=== PATIENT | female | born 1980 | race Two or more races ===

== ENCOUNTER → 2017-05-29 | Emergency (ER) | payer OTHER ==
[~2017-05-29] VITALS: Ht 157.5 cm; Wt 81.6 kg
[~2017-05-29] MED LIST: ATENOLOL25 MG; CATAFLAM50 MG PO; CEFUROXIME500 MG PO; ENALAPRIL MALEA10 MG; ORPH100T PO; PEPCID40 MG PO; ZOFRAN4 MG PO
== END | disposition home or self-care (01) ==
LOC: ER 22:20
DX: N39.0 Urinary tract infection, site not specified (principal); R10.813 Right lower quadrant abdominal tenderness

== ENCOUNTER 2018-02-23 15:38 | Emergency (ER) | payer OTHER ==
[~2018-02-23] VITALS: Ht 152.4 cm; Wt 90.7 kg
[2018-02-23] MEDS ORDERED: ZOLOFT100 MG (15:45)
== END 2018-02-23 22:28 | disposition home or self-care (01) ==
LOC: ER 15:38
DX: N94.6 Dysmenorrhea, unspecified (principal)